=== PATIENT | female | born 1980 | race Caucasian/White ===

== ENCOUNTER 2018-04-04 20:23 | Emergency (ER) | payer BC ==
[~2018-04-04] VITALS: Ht 167.6 cm; Wt 97.1 kg
[~2018-04-04 20:23] MED LIST: CELEXA20 MG PO; KLONOPIN1 MG PO
[2018-04-04 20:35] VITALS: Ht 167.6 cm; Wt 97.1 kg
[2018-04-04 21:33] LABS: BASOPHILS 0.6 % (0-2); EOSINOPHILS 3.3 % (0-7); LYMPHOCYTES 31.7 % (15-50); MCH 32.4 pg (26.0-34.0); MCV 92.6 fL (80.0-100.0); MEAN PLATELET VOLUME 10.5 fL (7.4-10.4); MONOCYTES 8.9 % (2-11); NEUTROPHILS 55.5 % (40-80); PLATELET COUNT 191 10x3/uL (130-400); RBC 4.32 10x6/uL (4.00-5.40); RDW 12.1 % (11.5-14.5); WBC 5.2 10x3/uL (4.8-10.8)
[2018-04-04 21:39] LABS: APTT 24.9 SECONDS (22.8-39.4); INR 1.03 (0.85-1.17); PROTIME 13.1 SECONDS (11.6-15.0)
[2018-04-04 21:40] LABS: APPEARANCE CLEAR (CLEAR); BILIRUBIN NEGATIVE (NEGATIVE); COLOR YELLOW (YELLOW); GLUCOSE NEGATIVE (NEGATIVE); KETONE LARGE mg/dL (NEGATIVE); NITRITE NEGATIVE (NEGATIVE); PROTEIN NEGATIVE (NEGATIVE); SPECIFIC GRAVITY 1.025 (1.005-1.020); UROBILINOGEN NORMAL (NORMAL)
[2018-04-04 21:41] LABS: WHITE CELLS - URINE 0-5 /hpf (0-5)
[2018-04-04 21:42] LABS: BACTERIA FEW /hpf (NONE SEEN); EPITHELIAL CELLS 0-5 /hpf (0-5); MUCUS <1+ /lpf (NONE SEEN); RED CELLS - URINE 0-5 /hpf (0-5)
[2018-04-04 21:42] LABS: ALBUMIN 3.9 g/dL (3.4-5.0); ALKALINE PHOSPHATASE 88 U/L (46-116); ALT (SGPT) 27 U/L (10-68); BILIRUBIN - TOTAL 1.46 mg/dL (0.2-1.3); CALC OSMOLALITY 277 mosm/kg (275-300); CALCIUM 9.3 mg/dL (8.5-10.1); CARBON DIOXIDE 25.8 mmol/L (21.0-32.0); CHLORIDE - SERUM 105 mmol/L (98-107); CREATININE - SERUM 0.8 mg/dL (0.6-1.3); GLUCOSE 93 mg/dL (74-106); POTASSIUM - SERUM 3.4 mmol/L (3.5-5.1); PROTEIN - SERUM 7.4 g/dL (6.4-8.2); SODIUM 140 mmol/L (136-145); UREA NITROGEN 11 mg/dL (7-18); eGFR NON AFRICAN AMERICAN 85 mL/min (90-120)
[2018-04-04 21:53] LABS: CKMB 0.6 U/L (0.0-3.6); CREATINE KINASE 68 UL (21-215); PRO BNP 87 pg/mL (0-125)
[2018-04-04] MEDS ORDERED: ATIVAN1 MG PO (22:24)
[2018-04-04 22:47] VITALS: BP 112/77
== END 2018-04-04 22:47 | disposition home or self-care (01) ==
LOC: D.ER 20:23
PROVIDERS: Family Medicine
DX: R07.9 Chest pain, unspecified (principal)